=== PATIENT | female | born 1985 ===

== ENCOUNTER 2023-11-04 10:03 | Outpatient (AMB) | payer BC, SELFPAY ==
[2023-11-04 10:05] VITALS: BP 130/80; PULSE 83; O2SAT 98; BMI 38.6
--- NOTE | 2023-11-04 10:05 | HO.NEPHOV ---
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 She had stopped her hydrochlorothiazide for a long time but has restarted again. When she was not taking HCTZ, she has been getting specks of renal stones as well as gravel in the urine every couple of months without any urinary infection or hematuria. She has no pedal edema. Her blood pressure has been at goal. She has not taking any nonsteroidal anti-inflammatories. She tries to maintain good hydration. She tries to take increase citrate in the diet and minimize salt in the food. Currently she feels well. [facility] Medical History (Updated 11/04/23 @ 10:29 by Brennan Chinchilla MD) Nephrocalcinosis Medullary sponge kidney Review of Systems Const All systems reviewed & are unremarkable except as noted in HPI and below Physical Exam Vital Signs: Last Vital Signs Pulse 83 11/04/23 10:05 BP 132/84 11/04/23 10:05 Pulse Ox 98 11/04/23 10:05 Oxygen Delivery Method Room Air 11/04/23 10:05 BMI result Body Mass Index 38.6 Const General: comfortable and no acute distress Orientation/consciousness: patient oriented x3 HEENT Head: Yes normocephalic Mouth: Normal oral and palatal mucosa present Eyes EOM: EOMs intact bilaterally Neck Neck: Yes supple Resp Auscultation: clear to auscultation bilaterally Cardio Jugular venous distension: no JVD Rate: regular rate GI Palpation (GI): Soft to palpation Auscultation: normal bowel sounds General: Yes no CVA tenderness Back/Spine/Pelvis Back: no CVA tenderness Skin General skin exam: no rashes or lesions noted Neuro General: patient oriented x3 and moves all extremities Extrem General: Yes no pedal edema Results Reviewed Nephrology Results: No Data to Display Assessment & Plan Assessment & Plan (1) Medullary sponge kidney: Code(s): Q61.5 - Medullary cystic kidney Category: Medical (2) Nephrocalcinosis: Code(s): E83.59 - Other disorders of calcium metabolism; N29 - Other disorders of kidney and ureter in diseases classified elsewhere Category: Medical Plan Octavia has meduallary sponge kidney and nephrolithiasis. She has strong family history of medullary sponge kidney. She was doing well when she was taking hydrochlorothiazide but had not been taking for some time with recurrence of some stones. She has restarted hydrochlorothiazide again. I asked her to maintain good hydration and put sunscreen while taking that medication. She is going to get her blood chemistry and renal functions along with urine studies as well as renal imaging for follow-up. She has not taking any nonsteroidal anti-inflammatories on a regular basis. She tries to maintain good hydration and increase citrate in the diet. She has no UTIs for a long time. I did not make any medication changes today. All these have been discussed in detail. Answered all questions. Orders: Orders Creatinine Today E83.59 - Other disorders of calcium metabolism, N29 - Other disorders of kidney and ureter in diseases classified elsewhere, Q61.5 - Medullary cystic kidney Blood Urea Nitrogen Today E83.59 - Other disorders of calcium metabolism, N29 - Other disorders of kidney and ureter in diseases classified elsewhere, Q61.5 - Medullary cystic kidney US renal BI Today E83.59 - Other disorders of calcium metabolism, N29 - Other disorders of kidney and ureter in diseases classified elsewhere, Q61.5 - Medullary cystic kidney Protein Creatinine Ratio, Ur Today E83.59 - Other disorders of calcium metabolism, N29 - Other disorders of kidney and ureter in diseases classified elsewhere, Q61.5 - Medullary cystic kidney Electrolytes Today E83.59 - Other disorders of calcium metabolism, N29 - Other disorders of kidney and ureter in diseases classified elsewhere, Q61.5 - Medullary cystic kidney Calcium Today E83.59 - Other disorders of calcium metabolism, N29 - Other disorders of kidney and ureter in diseases classified elsewhere, Q61.5 - Medullary cystic kidney UA and rflx microscopic Today E83.59 - Other disorders of calcium metabolism, N29 - Other disorders of kidney and ureter in diseases classified elsewhere, Q61.5 - Medullary cystic kidney Coding Level of Care Code Est Pt Level 4 (75515) Diagnoses Medullary sponge kidney Q61.5 Nephrocalcinosis E83.59; N29
== END 2023-11-04 10:35 | disposition home or self-care (01) ==
PROVIDERS: PCP Internal Medicine; Visit Provider Internal Medicine Nephrology
DX: Q61.5 Medullary cystic kidney (principal); E83.59 Other disorders of calcium metabolism; N29 Other disorders of kidney and ureter in diseases classified elsewhere
CPT/HCPCS: 99214

== ENCOUNTER → 2023-11-04 10:03 | Outpatient (BNVA) | payer BC, SELFPAY | PROVIDERS: PCP Internal Medicine; Visit Provider Internal Medicine Nephrology ==

== ENCOUNTER 2023-11-04 10:39 | Outpatient (REF) | payer BC, SELFPAY ==
[2023-11-04 13:39] LABS: Appearance Urine Turbid; Color Urine Yellow; Glucose Urine UA Negative (Negative); Leukocyte Esterase Urine Small (1+) (Negative); Nitrite Urine Negative (Negative); Specific Gravity - Urine 1.025 (1.005-1.025); UMIC TRIGGER UA YES; Urine Blood Negative (Negative); Urine Ketones Trace mg/dL (Negative); Urine Protein Trace mg/dL (Neg-Trace)
[2023-11-04 13:53] LABS: Bacteria Urine 1+ (None Seen); Calcium Oxalate Crystals Urine Present; Hyaline Casts Urine 0-2 /LPF (0-2); RBC Urine 0-2 /HPF (0-2); WBC Urine 0-5 /HPF (0-5)
[2023-11-04 14:24] LABS: Creatinine Urine 260.02 mg/dL; Protein/Creatinine Ratio, Ur 0.04 (<0.2); Total Protein Urine Random 11 mg/dL (<12)
[2023-11-04 14:36] LABS: Anion Gap 11 (12-20); Blood Urea Nitrogen 13 mg/dL (9-16); Calcium 9.5 mg/dL (8.4-10.2); Carbon Dioxide 25 mmol/L (22-29); Chloride 108 mmol/L (96-108); Estimated Glomerular Filt Rate > 60; Potassium 4.2 mmol/L (3.3-5.1); Sodium 140 mmol/L (135-145)
== END 2023-11-04 10:40 | disposition home or self-care (01) ==
LOC: HO.10HDL 10:39
PROVIDERS: Visit Provider Internal Medicine Nephrology
DX: Q61.5 Medullary cystic kidney (principal); E83.59 Other disorders of calcium metabolism; N29 Other disorders of kidney and ureter in diseases classified elsewhere
CPT/HCPCS: 36415; 80051; 81001; 82310; 82565; 82570; 84156; 84520

== ENCOUNTER 2023-11-17 12:21 | Outpatient (REF) | payer BC, SELFPAY ==
--- NOTE | ~2023-11-17 | US_ITS ---
EXAMINATION: US RETROPERITONEAL LIMITED (RENAL ONLY) CLINICAL INFORMATION: Medullary cystic kidney. COMPARISON: None available. TECHNIQUE: Real-time imaging of the kidneys. FINDINGS: RIGHT KIDNEY: 11.8 x 5.5 x 5.4 cm (SAG x AP x TRV). The kidney is normal in size, contour, and echogenicity. Renal cortical thickness is normal. No focal parenchymal lesions. At the interpolar aspect, 4 mm, 6 mm and 6 mm nonobstructing calculi are seen. No hydronephrosis. LEFT KIDNEY: 11.4 x 4.3 x 6.9 cm (SAG x AP x TRV). The kidney is normal in size, contour, and echogenicity. Renal cortical thickness is normal. No focal parenchymal lesions. At the interpolar aspect, a 2 mm nonobstructing calculus is seen. At the lower pole a 1.1 cm nonobstructing calculus is seen, with twinkle artifact. No hydronephrosis. US/US renal BI IMPRESSION: There are multiple nonobstructing bilateral renal calculi, as detailed. No hydronephrosis is seen.
== END 2023-11-17 12:22 | disposition home or self-care (01) ==
LOC: HO.US 12:21
PROVIDERS: PCP Internal Medicine; Visit Provider Internal Medicine Nephrology
DX: Q61.5 Medullary cystic kidney (principal); E83.59 Other disorders of calcium metabolism; N29 Other disorders of kidney and ureter in diseases classified elsewhere
CPT/HCPCS: 76775